=== PATIENT | male | born 1990 | race Hispanic/Latino ===

== ENCOUNTER 2017-04-11 19:52 | Emergency (ER) | payer SELFPAY ==
[~2017-04-11] VITALS: Ht 175.3 cm; Wt 67.4 kg
[~2017-04-11 19:52] MED LIST: BROMFED DM COU118 ML PO; DULCOLAX5 MG PO; FLONASE16 G1 BOTH NARES; LEVOTHYROXINE100 MCG PO; LORATADINE10 M2 PO; METHIMAZOLE5 MG PO; MUCUS RELIEF600 M1 PO; NAPROSYN500 MG PO; PROPRANOLOL HCL10 MG PO; TYLENOL REGULA325 MG PO; ULTRAM50 MG PO; VITAMIN D32000 UNI1 PO; ZANTAC150 MG PO
[2017-04-11 20:40] LABS: HEMATOCRIT 41.7 % (38.0-50.0); MCH 27.1 PG (29.0-34.0); MCHC 32.9 G/DL (30.0-36.0); MCV 82.6 FL (86-99); MEAN PLAT.VOLUME 10.6 uM^3 (9.0-12.4); PLATELET COUNT 269 K/uL (156-360); RBC DIS.WIDTH-CV 12.9 % (11.8-14.6); RBC DIS.WIDTH-SD 38.6 % (39-53); RED BLOOD COUNT 5.05 M/uL (4.00-5.50); WHITE BLOOD COUNT 5.3 K/uL (4.1-10.2)
[2017-04-11 20:52] LABS: CHLORIDE 105 mEq/L (99-109); POTASSIUM 4.5 mEq/L (3.7-5.4); SODIUM 137 mEq/L (136-147)
[2017-04-11 20:53] LABS: GLUCOSE 94 mg/dL (70-99)
[2017-04-11 20:55] LABS: ANION GAP 9 MEQ/L (2-14)
[2017-04-11 20:57] LABS: GFR ESTIMATE (CALCULATED) > 59 mL/min/
[2017-04-11 20:58] LABS: UREA NITROGEN (BUN) 15 mg/dL (9-23)
[2017-04-11 21:04] LABS: TROP-I INTERPRETATION NEGATIVE; TROPONIN-I < 0.01 ng/mL (0.0-0.30)
[2017-04-11 22:56] LABS: TROP-I INTERPRETATION NEGATIVE; TROPONIN-I < 0.01 ng/mL (0.0-0.30)
[2017-04-11 23:42] VITALS: BP 126/77
== END 2017-04-11 23:44 | disposition home or self-care (01) ==
LOC: EME 19:52
PROVIDERS: Physician Assistant Medical
DX: R07.9 Chest pain, unspecified (principal)
CPT/HCPCS: 71020; 80048; 84484; 85027; 93005; 99281; 99284